=== PATIENT | male | born 1990 | race Caucasian/White ===

== ENCOUNTER 2024-09-02 16:59 | Emergency (ER) | payer MEDICARE, MEDICAID, SELFPAY ==
[2024-09-02 17:11] VITALS: BP 114/70; PULSE 101; RESP 20; TEMP 37.4; O2SAT 96
--- NOTE | 2024-09-02 17:30 | EKG_ITS ---
[facility] Test Date: 2024-09-02 Pat Name: CHERYL BARRERA Department: Room: - Gender: Male Institutional Custodian: : 1990 Requested By: Jimmy De Order Number: [id number] Reading MD: Jimmy De Measurements Intervals [place] Rate: 126 P: 54 NH: 124 QRS: 58 QRSD: 93 T: 100 QT: 336 QTc: 487 Interpretive Statements SINUS TACHYCARDIA LOW QRS VOLTAGE IN PRECORDIAL LEADS [QRS DEFLECTION < 1.0 mV IN CHEST LEADS] POSSIBLE ANTERIOR MYOCARDIAL INFARCTION , OF INDETERMINATE AGE [30 ms Q WAVE IN V3/V4, OR R < 0.2 mV IN V4] No previous ECG available for comparison /[id number]/[id number]
--- NOTE | 2024-09-02 17:30 | XR_ITS ---
Examination: PA lateral chest 2 views TECHNIQUE: Upright PA lateral chest 2 views Date and time: September 02, 2024, 1747 hours INDICATIONS: Bilateral leg swelling beginning 3 days ago. FINDINGS: Mild heart failure pattern Mild to moderate enlargement cardiac contour Prominent vascular congestion Intact osseous structures IMPRESSION: Mild heart failure
--- NOTE | 2024-09-02 17:31 | EDNOTE_ITS ---
ED General RME/HPI General Chief complaint: Psychiatric Symptoms Stated complaint: FEET/LEGS SWOLLEN X 2-3 DAYS Time Seen by Provider: 09/02/24 17:07 Arrival date/time: 09/02/24 16:59 Patient is a 34-year-old male with history of schizophrenia presenting by mother due to noted progressive lower extremity edema for 3 days duration. No reported chest pain or shortness of breath. Mother also noted abdominal distention. There has been no reported fevers vomiting diarrhea. Limitations: no limitations Related Data Home Medications ?Medication ?Instructions ?Recorded ?Confirmed Unobtainable 12/30/17 12/30/17 Allergies Allergy/AdvReac Type Severity Reaction Status Date / Time No Known Allergies Allergy Verified 09/02/24 17:04 Review of Systems Review of Systems Systems Reviewed: All systems reviewed, normal except as documented Constitutional Constitutional: Denies body ache(s) and Denies chills Cardiovascular Cardiovascular: Denies dyspnea, Denies dyspnea on exertion, Reports leg edema, Denies leg ulcers, Denies lightheadedness, Denies orthopnea and Denies rapid heart rate Respiratory Respiratory: Denies cough, Denies dyspnea and Denies dyspnea on exertion Gastrointestinal Gastrointestinal: Denies coffee ground emesis, Denies constipation and Denies diarrhea Past Medical History Past Medical History CARDIAC: Negative Congestive Heart Failure RESPIRATORY: Negative Chronic Obstructive Pulmonary Disease (COPD) GENITOURINARY: Negative Renal Disease ENDOCRINE: Negative Diabetes Mellitus Type 1 or Diabetes Mellitus Type 2 PSYCHO/SOCIAL: Positive Schizophrenia and Bipolar Disorder Social History SMOKING STATUS: Current every day smoker ED Exam General Limitations: Present no limitations General appearance: Present alert, anxious and other (Appears paranoid) Head Head exam: Present atraumatic Eye Eye exam: Present normal appearance, PERRL and EOMI ENT ENT exam: Present normal exam, normal oropharynx and mucous membranes moist Neck Neck exam: Present normal inspection, full ROM and trachea midline Chest Chest inspection: Present normal inspection and symmetric chest wall rise Respiratory Respiratory exam: Present normal lung sounds bilaterally Cardiovascular Cardiovascular exam: Present regular rate, normal rhythm and normal heart sounds Abdominal Exam Abdominal exam: Present soft and normal bowel sounds; Absent distention Extremities Exam Extremities exam: Present full ROM and pedal edema (Bilateral 2+ pitting edema extending from the dorsum of the feet to the mid calf); Absent normal inspection Back Exam Back exam: Present normal inspection and full ROM Neurological Exam Neurological exam: Present alert, oriented X3 and CN II-XII intact Psychiatric Psychiatric exam: Present flat affect and other (Paranoia affect. Tangentiality and looseness of associations noted) Skin Skin exam: Present warm, dry, intact and normal color Course Quality Measures none Orders Category Date Time Status 1799 [1799 Psychiatric Hold] NOW Care 09/02/24 21:45 Ordered EKG (ED ONLY) *Do not use* NOW Care 09/02/24 17:[address] abdomen pelvis wo con Stat Exams 09/02/24 18:28 Completed EKG (ED Only) Stat Exams 09/02/24 17:30 Draft XR chest 2V Stat Exams 09/02/24 17:30 Completed Acetaminophen Stat Lab 09/02/24 17:44 Completed Alcohol, Blood Medical Stat Lab 09/02/24 17:44 Completed B-Type Natriuretic Peptide Stat Lab 09/02/24 17:44 Completed CBC Stat Lab 09/02/24 17:44 Completed Comprehensive Metabolic Panel Stat Lab 09/02/24 17:44 Completed Drug Screen,Urine Stat Lab 09/02/24 18:21 Completed Hepatitis Acute Panel Stat Lab 09/02/24 19:14 Completed LDH (Lactate Dehydrogenase) Stat Lab 09/02/24 17:44 Completed Lipase Stat Lab 09/02/24 17:44 Completed Magnesium Stat Lab 09/02/24 17:44 Completed Partial Thromboplastin Time Stat Lab 09/02/24 17:44 Completed Prothrombin Time with INR Stat Lab 09/02/24 17:44 Completed Salicylate Stat Lab 09/02/24 17:44 Completed Troponin I Stat Lab 09/02/24 17:44 Completed Urinalysis Stat Lab 09/02/24 18:21 Completed DiphenhydrAMINE INJ [Benadryl Inj] Med 09/02/24 18:39 Discontinued 50 mg IM X1 ONE Furosemide Inj [Lasix Inj] Med 09/02/24 21:30 Discontinued 20 mg IVP X1 ONE Haloperidol Lactate [Haldol Inj] Med 09/02/24 18:39 Discontinued 10 mg IM X1 ONE LORazepam [Ativan Inj] Med 09/02/24 18:39 Discontinued 1 mg IM X1 ONE Reevaluation(s) Reevaluation #1: Patient resting comfortably after sedation arouses to tactile stimuli. Time: 22:00 Vital Signs Vital signs: Vital Signs Temperature 99.3 F 09/02/24 17:11 Pulse Rate 101 H 09/02/24 17:11 Respiratory Rate 20 09/02/24 17:11 Blood Pressure 114/70 09/02/24 17:11 Pulse Oximetry (%) 96 09/02/24 17:11 Oxygen Delivery Method Room Air 09/02/24 17:11 O2 saturation 96% on room air. PROCEDURES: EKG Interpretation #1: Additional EKG comment: EKG interpreted by Emergency Department does not demonstrate sinus tachycardia with rate of 126 bpm. There are no no acute ST-T wave changes noted. No ventricular ectopy identified. [place] is normal intervals and normal evidence of? Previous anteroseptal wall myocardial infarction. Discharge Plan Plan Patient Disposition: [facility] Acute Care Fac Service Needed for Transfer: Psychiatry Patient condition on transfer: Stable Prescriptions/Referrals Prescriptions/Med Rec: No Action Unobtainable Referrals: No Primary/Family,Physician [Primary Care Provider] - In 1 week Problem List Clinical Impression: New onset of congestive heart failure, Pericardial effusion, Cirrhosis of liver Patient/Caregiver Discharge Instructions Print Language: Lao Stand Alone Forms: [employer] Award Info., Patient Portal Info Letter MDM Narrative MDM hospital course: Patient presenting with bilateral pedal edema approximate 2 to 3 days duration according to mother. Patient placed on environmental monitoring technician underwent basic cardiac workup. Laboratory markers demonstrate elevated white blood cell count 15K and markedly elevated liver function test and hyperbilirubinemia. CT scan demonstrates a large peritoneal effusion measuring 38 mm with signs of right- sided heart failure accounting for lower extremity edema. Patient placed on environmental monitoring technician, underwent rapid tranquilization due to patient's tendency to elope and undergo workup. Placed on a 1799 due to inability to care for self and divorce mediator contacted who suggests patieT likely to require pericardiocentesis. Remains hemodynamically stable throughout ED course. Due to patient's history of aggression divorce mediator on duty suggests referral to Center with active psychiatric intervention necessary for patient prior to potential procedure. Case was discussed with Dr. Pearson who is agreed to accept Clinical Information Provided by parent Medical Records Reviewed [facility] Chronic Illness/Social Conditions which may negatively complicate care or outcome(s)-explain: Mental health EKG EKG Interpretation narrative: Interpreted by me Lab Interpretation Labs: interpreted by me Imaging Provider imaging interpretation(s): Noted large pericardial effusion and signs of right-sided heart failure. Medication Administration(s) none (IV furosemide) Medication Administration History Discontinued Medications Diphenhydramine HCl (Diphenhydramine Inj 50 Mg/Ml Vial) 50 mg IM X1 ONE Stop: 09/02/24 18:40 Last Admin: 09/02/24 19:21 Dose: 50 mg Documented By: DT Furosemide (Furosemide Inj 10 Mg/Ml 4ml Vial) 20 mg IVP X1 ONE Stop: 09/02/24 21:31 Last Admin: 09/02/24 22:49 Dose: 20 mg Documented By: ANGI Haloperidol Lactate (Haloperidol Lact Inj 5 Mg/Ml Vial) 10 mg IM X1 ONE Stop: 09/02/24 18:40 Last Admin: 09/02/24 19:21 Dose: 10 mg Documented By: DT Lorazepam (Lorazepam 2 Mg/Ml Vial) 1 mg IM X1 ONE Stop: 09/02/24 18:40 Last Admin: 09/02/24 19:22 Dose: 1 mg Documented By: DT Diagnosis Differential diagnosis: Differential diagnosis includes hepatic failure/cardiac failure/Renal failu Dispositon Disposition: Transfer (Patient transferred to [facility] for further evaluation monitoring and treatment.)
[2024-09-02 18:01] LABS: Basophils # (Auto) 0.0 Thou/mm3 (0.0-0.2); Basophils % (Auto) 0 % (0-2.5); Eosinophils # (Auto) 0.1 Thou/mm3 (0.0-0.5); Eosinophils % (Auto) 0 % (0-10); Hematocrit 41.1 % (41.0-53.0); Hemoglobin 14.3 g/dL (13.5-16.0); Immature Granulocytes Auto 0.27 Thou/mm3 (0.00-0.00); Lymphocytes # (Auto) 2.1 Thou/mm3 (1.0-4.8); Lymphocytes % (Auto) 15 % (10-50); Mean Corpuscular HGB Conc 34.8 g/dl (31.0-37.0); Mean Corpuscular Hemoglobin 29.9 pg (25.0-35.0); Mean Corpuscular Volume 86 fL (80-100); Monocytes # (Auto) 1.9 Thou/mm3 (0.0-0.8); Monocytes % (Auto) 13 % (0-12); Neutrophils # (Auto) 10.1 Thou/mm3 (1.8-7.7); Neutrophils % (Auto) 70 % (37-80); Nucleated Red Blood Cell # 0.00 Thou/mm3 (0.00-0.00); Nucleated Red Blood Cell % 0 /100 WBC (0); Platelet Count 165 Thou/mm3 (140-440); RDW Standard Deviation 42.4 fL (35.1-43.9); Red Blood Count 4.79 Miln/mm3 (4.50-5.90); White Blood Count 14.5 Thou/mm3 (3.8-10.6)
[2024-09-02 18:17] LABS: B-Type Natriuretic Peptide 137 pg/mL (0-100)
[2024-09-02 18:19] LABS: INR 1.4 (0.9-1.3); Partial Thromboplastin Time 26.8 Seconds (22.0-36.0); Prothrombin Time 14.9 Seconds (9.0-12.2)
[2024-09-02 18:20] LABS: Alanine Aminotransferase 720 U/L (10-49); Albumin, Serum 3.5 gm/dL (3.5-5.0); Albumin/Globulin Ratio 1.3 (1.2-2.2); Alkaline Phosphatase 143 U/L (46-116); Anion Gap 8 (7-16); Aspartate Amino Transferase 140 U/L (0-34); BUN/Creatinine Ratio 14 Ratio (12-20); Bilirubin,Total 2.5 mg/dL (0.3-1.2); Blood Urea Nitrogen 11 mg/dL (9-23); Calcium 8.5 mg/dL (8.3-10.6); Calcium (Corrected) 8.9 mg/dL (8.5-10.1); Carbon Dioxide 22.9 mMol/L (20.0-31.0); Chloride 99 mMol/L (98-107); Creatinine (Component) 0.8 mg/dL (0.6-1.3); Globulin 2.6 gm/dL (2.3-3.5); Glucose 116 mg/dL (74-106); LDH (Lactate Dehydrogenase) 360 U/L (120-246); Magnesium 1.8 mg/dL (1.6-2.6); Osmolality,Calculated 261 (275-295); Potassium 4.6 mMol/L (3.4-5.1); Sodium 130 mMol/L (136-145); Total Protein 6.1 gm/dL (5.7-8.2); Troponin I < 0.002 ng/mL (0.0-0.045); eGFR > 60 See Note
--- NOTE | 2024-09-02 18:28 | XR_ITS ---
Examination: CT abdomen and pelvis without contrast. Coronal 3-D reconstructions. Sagittal 2-D reconstructions. Date and time of exam:September 02, 2024, 2042 hours INDICATIONS: Cirrhosis, abdominal pain and swollen legs beginning 3 days ago CTDI: vol (mGy): 8.70 DLP: (mGycm): 551 Technique: Axial images of the abdomen have been obtained, 3 mm slice thickness Intravenous contrast material has not been administered. Low dose protocols were performed. One or more of the following dose reduction techniques were used; automated exposure control, adjustment of the mA and/or KV according to patient size, use of iterative reconstruction technique. Findings: Large pericardial effusion measuring up to 38 mm Enlarged cardiac contour, moderate vascular congestion Moderate right and mild left pleural effusions Cirrhosis, liver is irregular in contour Considerable patient motion Spleen is not enlarged No pancreatic mass Contracted gallbladder No hydronephrosis Mild ascites No hydronephrosis No pericecal inflammatory disease Urinary bladder is intact No prostatomegaly Moderate osteopenia IMPRESSION: Large pericardial effusion. Moderate vascular congestion Cirrhosis Mild ascites No bowel obstruction or diverticulitis
[2024-09-02 18:35] LABS: Collection Type, Urine Clean Catch
[2024-09-02 18:52] LABS: Amorphous Crystals,Urine Present (Absent); Bilirubin,Urine 1+ (Negative); Blood,Urine Negative (Negative); Clarity,Urine Clear (Clear/Hazy); Color,Urine Yellow (Lt Yel-Yel); Glucose, Urine Negative (Negative); Hyaline Casts,Urine < 1 /hpf (0-1); Ketones,Urine Negative (Negative); Leukocyte Esterase,Urine Negative (Negative); Nitrite,Urine Negative (Negative); PH,Urine 6.0 (5.0-7.0); Protein,Urine 1+ (Neg - Trace); RBC,Urine 11 /hpf (0-3); Specific Gravity,Urine 1.032 (1.001-1.035); Squamous Epithelial Cell,Urine 1 /hpf (0-5); Urobilinogen,Urine 8.0 mg/dL (0.0-1.0); WBC,Urine 4 /hpf (0-5)
[2024-09-02 19:01] LABS: Lipase 67 U/L (12-53)
[2024-09-02 19:19] VITALS: BP 120/75; PULSE 122; RESP 17; TEMP 36.8; O2SAT 97
[2024-09-02] MEDS: HALOPERIDOL LACT INJ 5 MG/ML VIAL 10 MG IM (19:21)
[2024-09-02] MEDS: LORazepam 2 MG/ML VIAL 1 MG IM (19:22)
[2024-09-02 19:29] LABS: Amphetamine/Methamp Scrn,U Negative (Negative); Barbiturate Screen,Urine Negative (Negative); Benzodiazepines Screen,Urine Negative (Negative); Benzoylecgonine Screen, Ur Negative (Negative); Fentanyl Screen,Urine Negative (Negative); Opiate Screen,Urine Negative (Negative); THC Screen,Urine Negative (Negative)
--- NOTE | 2024-09-02 19:31 | PC.NURSE ---
FAMILY CONTACT GUILLERMO- MOTHER [phone] LEONARDO- BROTHER [phone]
--- NOTE | 2024-09-02 19:39 | PC.NURSE ---
PATIENT REFUSED TO ANSWER CRSS QUESTIONS. PATIENT YELLING STOP ASKING ME THESE QUESTIONS I DONT KNOW .
[2024-09-02 20:31] LABS: Hepatitis A Antibody IgM Non Reactive (Non React); Hepatitis B Core Antibody IgM Non Reactive (Non React); Hepatitis B Surface Antigen Non Reactive (Non React); Hepatitis C Antibody Non Reactive (Non React)
[2024-09-02 20:37] VITALS: BP 119/75; PULSE 128; RESP 12; TEMP 37.1; O2SAT 97
[2024-09-02 22:22] LABS: Acetaminophen < 2.0 mcg/mL (10.0-20.0); Alcohol, Blood Medical < 3.0 mg/dL (0-10.0); Salicylate < 3.0 mg/dL
[2024-09-02 22:49] VITALS: BP 101/66; PULSE 111
[2024-09-02] MEDS: FUROSEMIDE INJ 10 MG/ML 4ML VIAL 20 MG IVP (22:49)
[2024-09-02 22:53] VITALS: BP 101/66; PULSE 111; RESP 17; O2SAT 97
[2024-09-03 00:01] VITALS: BP 110/73; PULSE 109; RESP 18; TEMP 37.2; O2SAT 95
--- NOTE | 2024-09-03 00:07 | PC.NURSE ---
Addendum entered by Sophia Lay RN 09/03/24 00:48: MOTHER GUILLERMO CALLED TO RECEIVE DOUBLE NURSE TELEPHONE CONSENT FOR TRANSFER TO [facility] PER MOTHER YES I GIVE CONSENT FOR HIM TO BE TRANSFERRED. . Original Note: MOTHER GUILLERMO UPDATED ON PATIENT PLAN OF CARE AND POSSIBLE TRANSFER TO [facility] VIA PHONE CALL. PER GUILLERMO PLEASE CALL ME WHEN YOU HAVE A FURTHER UPDATE.
--- NOTE | 2024-09-03 00:44 | PC.NURSE ---
REPORT GIVEN TO LEONARDO RICHARDSON AT [facility].
[2024-09-03 01:06] VITALS: BP 115/77; PULSE 112; RESP 20; TEMP 37.1; O2SAT 99
--- NOTE | 2024-09-03 01:30 | PC.NURSE ---
BEDSIDE REPORT GIVEN TO EMS.
== END 2024-09-03 01:43 | disposition short-term general hospital (02) ==
PROVIDERS: Emergency Provider Emergency Medicine
DX: I50.9 Heart failure, unspecified (principal); K74.60 Unspecified cirrhosis of liver; R00.0 Tachycardia, unspecified; Z75.1 Person awaiting admission to adequate facility elsewhere
CPT/HCPCS: 36415; 71046; 74176; 80053; 80074; 80307; 80320; 80329; 81001; 83615; 83690; 83735; 83880; 84484; 85025; 85610; 85730; 93005; 96372; 96374; 99283; J1200; J1630; J1938; J2060; G0480